=== PATIENT | female | born 1935 | race Native Hawaiian/Other Pacific Islander ===

== ENCOUNTER 2019-07-26 19:11 | Inpatient (IN) | payer OTHER ==
[~2019-07-26] VITALS: Ht 142.2 cm; Wt 52.4 kg
[~2019-07-26 19:11] MED LIST: ACET-66; AMLO5TAB66; ASPI-825; CARV6.2579; HCTZ; ROSU20TA23
[2019-07-26 19:56] LABS: GLUCOSE,POINT OF CARE 115 MG/DL (70-110)
[2019-07-27] MEDS ORDERED: 0.9% SODIUM CHLORIDE 10 ML SYRINGE IVP PRN ×2 (00:30→04:00)
[2019-07-27 00:52] LABS: APPEARANCE,URINE CLEAR (CLEAR); BILIRUBIN,URINE NEGATIVE (NEGATIVE); GLUCOSE, URINE (UA) >=1000 mg/dL (NEGATIVE); KETONES,URINE NEGATIVE (NEGATIVE); LEUKOCYTE ESTERASE ,URINE NEGATIVE (NEGATIVE); NITRATE,URINE NEGATIVE (NEGATIVE); OCCULT BLOOD,URINE MODERATE (NEGATIVE); PROTEIN,URINE NEGATIVE (NEGATIVE); UROBILINOGEN,URINE 0.2 mg/dL (<=1.0)
[2019-07-27 00:53] LABS: BASOPHILS % (AUTO) 0.9 % (0.0-2.0); EOSINOPHILS % (AUTO) 2.8 % (1.0-6.0); HEMATOCRIT 43.8 % (36-46); HEMOGLOBIN 14.3 g/dL (12.0-16.0); LYMPHOCYTES # (AUTO) 2.9 K/uL (1.0-4.8); LYMPHOCYTES % (AUTO) 43.2 % (22.0-44.0); MEAN CORPUSCULAR HEMOGLOBIN 27.8 pg (26.0-34.0); MEAN CORPUSCULAR HGB CONC 32.6 G/dL (31.0-37.0); MEAN CORPUSCULAR VOLUME 85 fL (80-100); MONOCYTES # (AUTO) 0.5 K/uL (0.1-1.0); NEUTROPHILS # (AUTO) 3.1 K/uL (1.8-7.7); NEUTROPHILS % (AUTO) 46.1 % (40.0-70.0); PLATELET COUNT (AUTO) 220 K/uL (150-450); RED BLOOD CELL COUNT(AUTO) 5.14 MIL/uL (4.00-5.20); RED CELL DISTRIBUTION WIDTH 13.3 % (11.5-14.5)
[2019-07-27 01:03] LABS: INR 0.9 (0.9-1.1); PROTHROMBIN TIME 9.6 SEC (9.4-11.6)
[2019-07-27 01:06] LABS: ALBUMIN 4.8 g/dL (3.4-5.0); BILIRUBIN,TOTAL 1.2 mg/dL (0.1-1.0); CREATININE 1.02 mg/dL (0.60-1.30); TOTAL PROTEIN, SERUM 8.1 g/dL (6.4-8.2)
[2019-07-27 01:08] LABS: POTASSIUM 2.8 mmol/L (3.5-5.1)
[2019-07-27 01:13] LABS: BACTERIA,URINE None Seen /HPF (None Seen); SQUAMOUS EPITHELIAL CELL,UR Few /LPF (None Seen)
[2019-07-27] MEDS ORDERED: POTASSIUM CHLORIDE 20 MEQ ER TABLET PO ONE (01:45)
[2019-07-27] MEDS ORDERED: MAGNESIUM SULFATE 2 GM/WATER 50 ML IV ONE (01:45)
[2019-07-27 02:01] LABS: MAGNESIUM 2.3 mg/dL (1.80-2.40)
[2019-07-27] MEDS ORDERED: SODIUM CHLORIDE 0.9% 1,000 ML IV ONE ×3 (02:15→03:15)
[2019-07-27] MEDS ORDERED: ONDANSETRON HCL 4 MG/2 ML VIAL IVP PRN ×2 (04:00→10:45)
[2019-07-27] MEDS ORDERED: ACETAMINOPHEN 325 MG TABLET PO PRN ×2 (04:00→10:45)
[2019-07-27] MEDS: POTASSIUM CHL 10 MEQ/WATER 50 ML IV SCH ×2 (04:18→05:13)
[2019-07-27 06:45] VITALS: BP 125/76
[2019-07-27 07:53] VITALS: BP 108/65
[2019-07-27] MEDS ORDERED: MORPHINE SULFATE 2 MG/ML SYRINGE IVP PRN (10:45)
[2019-07-27] MEDS ORDERED: POTASSIUM CHLORIDE 20 MEQ ER TABLET PO PRN (10:45)
[2019-07-27] MEDS ORDERED: BISACODYL 10 MG RECTAL RECTAL SUPPOSITORY PR PRN (10:45)
[2019-07-27] MEDS ORDERED: MAGNESIUM HYDROXIDE SUSPENSION 30 ML UDCUP PO PRN (10:45)
[2019-07-27] MEDS ORDERED: HYDROCODONE/ACETAMINOPHEN 5-325 MG TABLET PO PRN (10:45)
[2019-07-27] MEDS ORDERED: ZOLPIDEM TARTRATE 5 MG TABLET PO PRN (10:45)
[2019-07-27 11:31] VITALS: BP 109/61
[2019-07-27 12:09] LABS: ALANINE AMINOTRANSFERASE 13 U/L (12-78); ALBUMIN 3.6 g/dL (3.4-5.0); ALKALINE PHOSPHATASE 67 U/L (46-116); ANION GAP 7 mmol/L (8-16); ASPARTATE AMINOTRANSFERASE 16 U/L (15-37); CALCIUM, TOTAL 8.3 mg/dL (8.8-10.5); CARBON DIOXIDE 29 mmol/L (22-29); CHLORIDE 98 mmol/L (98-107); CREATININE 0.75 mg/dL (0.60-1.30); GLUCOSE,RANDOM 117 mg/dL (70-110); POTASSIUM 3.5 mmol/L (3.5-5.1); SODIUM SERUM 134 mmol/L (136-145); TOTAL PROTEIN, SERUM 6.6 g/dL (6.4-8.2); UREA NITROGEN, BLOOD 15 mg/dL (7-18)
[2019-07-27 12:10] LABS: GLOMERULAR FILTR. RATE CALC > 60 mL/min (>60)
[2019-07-27] MEDS ORDERED: LOPERAMIDE HCL 2 MG CAPSULE PO PRN (15:00)
[2019-07-27] MEDS: HEPARIN SODIUM,PORCINE 5,000 UNITS/ML VIAL SQ SCH ×2 (16:00→23:27)
[2019-07-27 16:50] VITALS: BP 115/70
[2019-07-27] MEDS: MetroNIDAZOLE 500 MG TABLET PO SCH ×2 (17:42→21:40)
[2019-07-27] MEDS: DOCUSATE SODIUM 100 MG CAPSULE PO SCH (20:25)
[2019-07-27 20:39] VITALS: BP 106/60
[2019-07-27] MEDS ORDERED: SODIUM CHLORIDE 0.9% 500 ML IV ONE (20:42)
[2019-07-27] MEDS: POTASSIUM CHL 10 MEQ/WATER 50 ML IV PRN ×2 (21:41→23:23)
[2019-07-28] MEDS: POTASSIUM CHL 10 MEQ/WATER 50 ML IV PRN (00:24)
[2019-07-28 00:34] VITALS: BP 111/64
[2019-07-28 02:54] LABS: CALCIUM, TOTAL 8.3 mg/dL (8.8-10.5); CREATININE 0.94 mg/dL (0.60-1.30); POTASSIUM 4.6 mmol/L (3.5-5.1)
[2019-07-28 04:45] VITALS: BP 106/62
[2019-07-28 07:12] VITALS: BP 114/71
[2019-07-28] MEDS: HEPARIN SODIUM,PORCINE 5,000 UNITS/ML VIAL SQ SCH ×2 (08:55→15:13)
[2019-07-28] MEDS: AmLODIPine BESYLATE 5 MG TABLET PO SCH (08:55)
[2019-07-28] MEDS: DOCUSATE SODIUM 100 MG CAPSULE PO SCH ×2 (08:55→21:00)
[2019-07-28] MEDS: ROSUVASTATIN CALCIUM 10 MG TABLET PO SCH (08:55)
[2019-07-28] MEDS: PANTOPRAZOLE SODIUM 40 MG DR TABLET PO SCH (08:55)
[2019-07-28] MEDS: MetroNIDAZOLE 500 MG TABLET PO SCH ×3 (08:55→21:28)
[2019-07-28 10:51] VITALS: BP 135/82
[2019-07-28 15:16] VITALS: BP 126/78
[2019-07-28 19:49] VITALS: BP 134/69
[2019-07-29 00:09] VITALS: BP 131/76
[2019-07-29] MEDS: HEPARIN SODIUM,PORCINE 5,000 UNITS/ML VIAL SQ SCH ×2 (00:27→08:00)
[2019-07-29 04:38] VITALS: BP 129/76
[2019-07-29 06:50] LABS: BASOPHILS % (AUTO) 1.4 % (0.0-2.0); EOSINOPHILS % (AUTO) 9.7 % (1.0-6.0); HEMATOCRIT 39.5 % (36-46); HEMOGLOBIN 12.9 g/dL (12.0-16.0); LYMPHOCYTES # (AUTO) 2.1 K/uL (1.0-4.8); LYMPHOCYTES % (AUTO) 33.6 % (22.0-44.0); MEAN CORPUSCULAR HEMOGLOBIN 27.8 pg (26.0-34.0); MEAN CORPUSCULAR HGB CONC 32.6 G/dL (31.0-37.0); MEAN CORPUSCULAR VOLUME 85 fL (80-100); MONOCYTES # (AUTO) 0.6 K/uL (0.1-1.0); MONOCYTES % (AUTO) 10.6 % (2.0-9.0); NEUTROPHILS # (AUTO) 2.7 K/uL (1.8-7.7); NEUTROPHILS % (AUTO) 44.7 % (40.0-70.0); PLATELET COUNT (AUTO) 209 K/uL (150-450); RED BLOOD CELL COUNT(AUTO) 4.63 MIL/uL (4.00-5.20); RED CELL DISTRIBUTION WIDTH 13.5 % (11.5-14.5)
[2019-07-29 07:19] LABS: ANION GAP 5 mmol/L (8-16); CALCIUM, TOTAL 9.2 mg/dL (8.8-10.5); CARBON DIOXIDE 31 mmol/L (22-29); CHLORIDE 102 mmol/L (98-107); CREATININE 0.79 mg/dL (0.60-1.30); GLOMERULAR FILTR. RATE CALC > 60 mL/min (>60); GLUCOSE,RANDOM 108 mg/dL (70-110); PHOSPHORUS 3.7 mg/dL (2.5-4.9); POTASSIUM 4.7 mmol/L (3.5-5.1); SODIUM SERUM 138 mmol/L (136-145); UREA NITROGEN, BLOOD 14 mg/dL (7-18)
[2019-07-29 07:46] VITALS: BP 145/84
[2019-07-29] MEDS: DOCUSATE SODIUM 100 MG CAPSULE PO SCH (09:00)
[2019-07-29] MEDS: PANTOPRAZOLE SODIUM 40 MG DR TABLET PO SCH (10:07)
[2019-07-29] MEDS: MetroNIDAZOLE 500 MG TABLET PO SCH (10:07)
[2019-07-29] MEDS: AmLODIPine BESYLATE 5 MG TABLET PO SCH (10:07)
[2019-07-29] MEDS: ROSUVASTATIN CALCIUM 10 MG TABLET PO SCH (10:07)
[2019-07-29 11:07] VITALS: BP 126/73
== END 2019-07-29 14:10 | disposition home or self-care (01) | DRG 425 ==
LOC: EMS 19:13 → 5S 07-27 04:36
PROVIDERS: ADMIT Internal Medicine; ATTEND Internal Medicine
DX: E87.6 Hypokalemia (principal); E87.1 Hypo-osmolality and hyponatremia; M19.90 Unspecified osteoarthritis, unspecified site; I10 Essential (primary) hypertension; Z88.8 Allergy status to other drugs, medicaments and biological substances; E78.5 Hyperlipidemia, unspecified
CPT/HCPCS: 70450; 72125; 74177; 83605; 83735; 84100; 84145; 93005; 97116; 97162; 97165; 97535; 99291; G0378; J1644; J3475; J3480; J7030; J7040